=== PATIENT | male | born 1970 | race Caucasian/White ===

== ENCOUNTER 2016-10-10 21:09 | Emergency (ER) | payer BC ==
[~2016-10-10] VITALS: Ht 170.2 cm; Wt 80.8 kg
[2016-10-10 21:13] VITALS: Ht 170.2 cm; Wt 80.8 kg
[2016-10-10] MEDS ORDERED: ACETAMINOPHEN 500 MG TAB PO STA (21:47)
[2016-10-10] MEDS ORDERED: SODIUM CHLORIDE 0.9% 1000ML 1,000 ML IV STA (21:47)
[2016-10-10 22:01] LABS: BASO % 0.5 %; BASO ABS # 0.01 K/uL (0-0.2); COMPLETE YES; EOS % 0.9 %; HEMATOCRIT 39.7 % (42-52); LYMPH ABS # 0.35 K/uL (1.2-3.4); MEAN CELL VOLUME 83.1 fL (80-100); MEAN CORPUSCULAR HEMOGLOBIN 30.3 pg (25-34); MEAN CORPUSCULAR HGB CONC 36.5 g/dl (32-36); MEAN PLATELET VOLUME 9.1 fL (7.4-10.4); MONO % 8.7 %; NEUT % 73.9 %; PLATELET COUNT 121 K/uL (130-400); RED BLOOD COUNT 4.78 M/uL (4.7-6.1); WHITE BLOOD COUNT 2.19 K/uL (4.8-10.8)
[2016-10-10 22:06] LABS: URINE APPEARANCE CLEAR (CLEAR); URINE BILIRUBIN NEG (NEG); URINE COLOR YELLOW; URINE NITRITE NEG (NEG); URINE PH 6.5 (4.5-7.5); URINE SPECIFIC GRAVITY 1.007 (1.000-1.030); UROBILINOGEN NEG (NEG); ZZUR CULT IF INDIC CLEAN CATCH NO
--- NOTE | 2016-10-10 22:09 | EMERGENCY ROOM VISIT NOTE ---
History First contact with patient: 21:32 Chief Complaint: FEVER Stated Complaint: FEVER 103,BODYACHES,CHILLS History of Present Illness The patient is a 45 year old male who presents to the Emergency Room with complaints of fever and body aches for the past 4 days. The patient reports that 4-5 days ago, he began to feel ill. He reports he developed a fever up to 102F as well as chills. He reports body aches and pain in multiple joints. He states that his symptoms seem to be improving yesterday, but worsened again this afternoon. He has been taking Advil intermittently for pain and fevers which does help his symptoms. He states that this afternoon, his fever spiked to over 103F. He took 800 mg ibuprofen 2 hours ago and an additional 600 mg ibuprofen 1 hour ago. He reports pain in the right shoulder and the feeling of "fullness" in the neck. He is having difficulty taking a deep breath. He rates his overall discomfort an 8/10. He denies earaches, sore throat, abdominal pain, nausea/vomiting, changes in bowel movements, headache, cough or chest pain. Review of Systems A complete 10 point review of systems was reviewed with the patient with pertinent positives and negatives as per history of present illness. All else were negative. Social History Smoking Status: Never Smoker Current/Historical Medications Scheduled Doxycycline Hyclate (Vibramycin), 100 MG PO BID Scheduled PRN Ibuprofen Tab (Advil), 600-800 MG PO Q8 PRN for Pain or Fever Pseudoephedrine (Sudafed), 30 MG PO UD PRN for Sinus Pressure/Congestion Allergies Coded Allergies: No Known Allergies (Unverified , 10/10/16) Physical Exam Vital Signs Date Time Temp Pulse Resp B/P (MAP) Pulse Ox O2 Delivery O2 Flow Rate FiO2 10/10/16 23:31 72 18 145/97 98 Room Air 10/10/16 23:11 37.1 76 16 145/90 98 Room Air 10/10/16 21:13 38.1 88 20 182/111 98 Room Air Physical Exam VITALS: Vitals are noted on the nurse's note and reviewed by myself. Vital signs stable. GENERAL: This is a 45-year-old male, in no acute distress, nondiaphoretic, well- developed well-nourished. SKIN: The skin was without rashes. EARS: External auditory canals clear, tympanic membranes pearly maldonado with minimal injections and scarring consistent with prior tympanostomy. EYES: Pupils equal round and reactive to light and accommodation. Conjunctivae without injection, sclerae without icterus. NOSE: Patent, turbinates without inflammation or discharge. MOUTH: Mucous membranes moist. Tonsils are surgically absent. Pharynx without erythema or exudate. NECK: Supple. No lymphadenopathy. Patient does report subjective discomfort with flexion of the neck. Negative Kernig's and Brudzinski's. HEART: Regular rate and rhythm without murmurs gallops or rubs. LUNGS: Clear to auscultation bilaterally without wheezes, rales or rhonchi. ABDOMEN: Soft, nontender to palpation. NEURO: Patient was alert and oriented to person place and time. Medical Decision & Procedures ER Provider Diagnostic Interpretation: CHEST 2 VIEWS ROUTINE HISTORY: fever, bodyaches COMPARISON: None. FINDINGS: The lungs are clear. Cardiac silhouette is normal in size. No pleural effusions. No pneumothorax. IMPRESSION: No acute process. Laboratory Results 10/10/16 21:50 Red Blood Count 4.78, Mean Corpuscular Volume 83.1, Mean Corpuscular Hemoglobin 30.3, Mean Corpuscular Hemoglobin Concent 36.5, Mean Platelet Volume 9.1, Neutrophils (%) (Auto) 73.9, Lymphocytes (%) (Auto) 16.0, Monocytes (%) (Auto) 8.7, Eosinophils (%) (Auto) 0.9, Basophils (%) (Auto) 0.5, Neutrophils # (Auto) 1.62, Lymphocytes # (Auto) 0.35, Monocytes # (Auto) 0.19, Eosinophils # (Auto) 0.02, Basophils # (Auto) 0.01 10/10/16 21:50 Test 10/10/16 21:30 10/10/16 21:50 Urine Color YELLOW Urine Appearance CLEAR (CLEAR) Urine pH 6.5 (4.5-7.5) Urine Specific [place] 1.007 (1.000-1.030) Urine Protein NEG (NEG) Urine Glucose (UA) NEG (NEG) Urine Ketones NEG (NEG) Urine Occult Blood NEG (NEG) Urine Nitrite NEG (NEG) Urine Bilirubin NEG (NEG) Urine Urobilinogen NEG (NEG) Urine Leukocyte Esterase NEG (NEG) White Blood Count 2.19 K/uL (4.8-10.8) Red Blood Count 4.78 M/uL (4.7-6.1) Hemoglobin 14.5 g/dL (14.0-18.0) Hematocrit 39.7 % (42-52) Mean Corpuscular Volume 83.1 fL (80-100) Mean Corpuscular Hemoglobin 30.3 pg (25-34) Mean Corpuscular Hemoglobin Concent 36.5 g/dl (32-36) Platelet Count 121 K/uL (130-400) Mean Platelet Volume 9.1 fL (7.4-10.4) Neutrophils (%) (Auto) 73.9 % Lymphocytes (%) (Auto) 16.0 % Monocytes (%) (Auto) 8.7 % Eosinophils (%) (Auto) 0.9 % Basophils (%) (Auto) 0.5 % Neutrophils # (Auto) 1.62 K/uL (1.4-6.5) Lymphocytes # (Auto) 0.35 K/uL (1.2-3.4) Monocytes # (Auto) 0.19 K/uL (0.11-0.59) Eosinophils # (Auto) 0.02 K/uL (0-0.5) Basophils # (Auto) 0.01 K/uL (0-0.2) RDW Standard Deviation 37.1 fL (36.4-46.3) RDW Coefficient of Variation 12.2 % (11.5-14.5) Immature Granulocyte % (Auto) 0.0 % Immature Granulocyte # (Auto) 0.00 K/uL (0.00-0.02) Anion Gap 11.0 mmol/L (3-11) Est Creatinine Clear Calc Drug Dose 110.4 ml/min Estimated GFR () 121.4 Estimated GFR (Non- 104.7 BUN/Creatinine Ratio 14.9 (10-20) Calcium Level 8.5 mg/dl (8.5-10.1) Total Bilirubin 0.6 mg/dl (0.2-1) Aspartate Amino Transf (AST/SGOT) 156 U/L (15-37) Alanine Aminotransferase (ALT/SGPT) 184 U/L (12-78) Alkaline Phosphatase 194 U/L (45-117) Total Protein 6.7 gm/dl (6.4-8.2) Albumin 3.6 gm/dl (3.4-5.0) Globulin 3.1 gm/dl (2.5-4.0) Albumin/Globulin Ratio 1.2 (0.9-2) Lyme Disease IgG Antibody NEG (NEG) Lyme Disease IgM Antibody NEG (NEG) Monoscreen NEG (NEG) Medications Administered Medications (Trade) Dose Ordered Sig/Srini Route Start Time Stop Time Status Last Admin Dose Admin Sodium Chloride 1,000 ml @ 999 mls/hr Q1H1M STAT IV 10/10/16 21:47 10/10/16 22:47 DC 10/10/16 21:55 999 MLS/HR Acetaminophen (Tylenol Tab) 1,000 mg NOW STAT PO 10/10/16 21:47 10/10/16 21:50 DC 10/10/16 21:56 1,000 MG Doxycycline Hyclate (Vibramycin Cap) 100 mg NOW STAT PO 10/10/16 23:27 10/10/16 23:28 DC 10/10/16 23:30 100 MG ED Course The patient was evaluated as above. Labs were drawn and IV access was obtained. Patient was medicated with 1 L normal saline solution and 1 g Tylenol. Patient was reevaluated and felt much better. Findings were discussed. He was ordered a dose of doxycycline. He was given an additional dose to take home for the morning. Discharge instructions were reviewed with the patient. The patient verbalized understanding of my assessment and treatment plan and was discharged home in good condition. Medical Decision Differential diagnosis includes pneumonia, mononucleosis, strep pharyngitis, sepsis, viral illness, Lyme disease, among others. The patient is a 45-year-old male who presents today complaining of fevers and body aches for the past few days there is no obvious source of infection on physical exam. Patient has a mild leukopenia with white blood cell count of 2.19. Mild thrombocytopenia with platelets of 121. The patient also has elevation of his LFTs. The patient had already been given Tylenol and was . instructed to avoid the use of Tylenol in the future, until LFTs normalize. The patient's clinical picture and laboratory findings are consistent with a tick borne illness. Lyme Testing was negative. Ehrlichia testing is pending. The patient will be placed on doxycycline. He was instructed to follow-up with his primary care provider this week for a recheck. The patient did complain of some neck pain but states it feels similar to the rest of his body aches. Kernig's and Brudzinski's were negative. I do not feel that lumbar puncture is necessary at this time. The patient was instructed to return here if he has worsening of his current symptoms or any new/concerning symptoms. The patient's case was reviewed with Dr. Sauceda, ED attending physician, who agreed with my assessment and treatment plan. Based on the patient's presentation and work up, I feel the patient is stable for outpatient treatment. The patient was educated to return to the emergency department for any worsening of their current condition or new/concerning symptoms. He will follow up with his PCP this week. Medication reconciliation: I attest that I have personally reviewed the patient 's current medication list. Blood pressure screening: Patient was found to have an elevated blood pressure and was referred to their primary care provider for recheck and further treatment. Impression Primary Impression: Febrile illness Departure Information Dispostion Home / Self-Care Condition GOOD Prescriptions Doxycycline Hyclate (VIBRAMYCIN) 100 Mg Cap 100 MG PO BID for 13 Days, #26 CAP Prov: Isela Blancas .DANTE 10/10/16 Referrals Robinson Yu, DYinkaOYinka (PCP) Patient Instructions My [facility] Additional Instructions You were prescribed doxycycline to be taken twice daily for a total of 14 days. This is an antibiotic. All antibiotics have the potential to cause diarrhea. Stop this medication and contact a medical provider if you were to develop any significant adverse side effects including: wheezing, shortness of breath, passing out, vomiting, or a diffuse rash. Always take antibiotics as directed and COMPLETE the ENTIRE course regardless of the improvement of your symptoms. You should take this medication with some food, but avoid dairy with the medication. Ibuprofen, 800 mg every 6 hours for pain/fever control. Rest and drink plenty of fluids. Avoid Tylenol and alcohol, as were liver function tests were elevated today. You need to see your primary care provider this week for recheck. Your white blood cell count and platelet count was slightly low and liver function tests were slightly elevated. Return to the emergency department with worsening symptoms, vomiting, severe headache, worsening If this or any other new/concerning symptoms.
[2016-10-10 22:12] LABS: MANUAL MICROSCOPIC REQUIRED? NO; REVIEW REQ? NO
[2016-10-10] MEDS ORDERED: IBUP-103 PO (22:17)
[2016-10-10] MEDS ORDERED: PSEU30TA20 PO (22:18)
[2016-10-10 22:20] LABS: BUN/CREATININE RATIO 14.9 (10-20); CREATININE 0.86 mg/dl (0.60-1.40); POTASSIUM 3.7 mmol/L (3.5-5.1)
[2016-10-10 22:23] LABS: ALB/GLOB RATIO 1.2 (0.9-2)
[2016-10-10 22:33] LABS: CALCIUM 8.5 mg/dl (8.5-10.1)
--- NOTE | 2016-10-10 22:54 | DIAGNOSTIC IMAGING REPORT ---
CHEST 2 VIEWS ROUTINE HISTORY: fever, bodyaches COMPARISON: None. FINDINGS: The lungs are clear. Cardiac silhouette is normal in size. No pleural effusions. No pneumothorax. IMPRESSION: No acute process. Electronically signed by: Dejuan Miller M.D. 10/10/2016 10:52 PM Dictated Date/Time: 10/10/2016 10:51 PM
[2016-10-10 22:58] LABS: LYME DISEASE AB IGG NEG (NEG); LYME DISEASE AB IGM NEG (NEG)
[2016-10-10 23:11] VITALS: TEMP 37.1
[2016-10-10] MEDS ORDERED: DOXYCYCLINE HYCLATE 100 MG CAP PO STA (23:27)
[2016-10-10 23:31] VITALS: BP 145/97; PULSE 72; O2SAT 98
[2016-10-10] MEDS ORDERED: DOXY100C PO (23:31)
[2016-10-14 18:59] LABS: EHRLICHIA CHAFF IGG AB <1:64 (<1:64); EHRLICHIA CHAFF IGM AB <1:20 (<1:20)
== END 2016-10-10 23:41 | disposition home or self-care (01) ==
LOC: C.EDB 21:11
DX: R50.9 Fever, unspecified (principal)